=== PATIENT | female | born 1985 | race Caucasian/White ===

== ENCOUNTER 2018-04-01 18:03 | Observation (INO) | payer MEDICAID ==
[2018-04-01] MEDS ORDERED: GLUCOSE GEL 15 GRAM TUBE PO ×2 (19:00)
[2018-04-01] MEDS ORDERED: GLUCOSE GEL 15 GRAM TUBE BUCCAL (19:00)
[2018-04-01] MEDS ORDERED: GLUCAGON 1 MG INJ IM (19:00)
[2018-04-01] MEDS ORDERED: DEXTROSE 50% 50 ML SYRINGE IV ×2 (19:00)
[2018-04-01] MEDS ORDERED: INSULIN ASPART [NOVOLOG] 3 ML PEN SC ×2 (19:35)
[2018-04-01] MEDS ORDERED: ACCU-CHEK XX (19:35)
[2018-04-01 19:36] LABS: HEMOGLOBIN A1C 5.7 % (0-5.9)
[2018-04-01] MEDS: metFORMIN (XR) 500 MG TAB PO (21:18)
[2018-04-02] MEDS: metFORMIN (XR) 500 MG TAB PO (10:18)
== END 2018-04-02 17:30 | disposition home or self-care (01) ==
LOC: L-D 18:03
PROVIDERS: Obstetrics & Gynecology
DX: O24.415 Gestational diabetes mellitus in pregnancy, controlled by oral hypoglycemic drugs (principal); Z3A.33 33 weeks gestation of pregnancy
CPT/HCPCS: 76818; 82962; 83036; 99217

== ENCOUNTER 2018-05-20 07:29 | Inpatient (IN) | payer MEDICAID ==
[2018-05-20 08:31] LABS: RUPTURE FETAL MEMBRANES POSITIVE (NEGATIVE)
[2018-05-20] MEDS: LACTATED RINGER'S 1,000 ML IV* ×3 (08:51→22:16)
[2018-05-20] MEDS ORDERED: OXYTOCIN 30 UNITS/LR 500 ML IV ×5 (09:00→19:57)
[2018-05-20] MEDS ORDERED: LIDOCAINE 1% (MPF) 30 ML INJ INJ (09:00)
[2018-05-20] MEDS ORDERED: IBUPROFEN 600 MG TAB PO (09:00)
[2018-05-20] MEDS ORDERED: ACETAMINOPHEN/CODEINE #3 TAB PO (09:00)
[2018-05-20] MEDS ORDERED: CARBOPROST 250 MCG INJ IM ×3 (09:00→19:30)
[2018-05-20] MEDS ORDERED: METHYLERGONOVINE 0.2 MG INJ IM ×2 (09:00→19:00)
[2018-05-20] MEDS ORDERED: BUTORPHANOL 2 MG INJ IV (09:00)
[2018-05-20] MEDS ORDERED: MISOPROSTOL 200 MCG TAB PR ×2 (09:00→19:00)
[2018-05-20] MEDS ORDERED: NA PHOSPHATE/BIPHOS 133 ML ENEMA PR (09:00)
[2018-05-20] MEDS: AMPICILLIN 2 GM/NS (PMX) 100 ML IV (09:10)
[2018-05-20 09:19] LABS: ADD MAN DIFF? NO
[2018-05-20 09:21] LABS: WHITE BLOOD COUNT 11.2 10^3/ul (4.8-10.8)
[2018-05-20 09:21] LABS: BASOPHILS % 0.4 % (0.0-2.0); EOSINOPHILS # 0.1 10^3/ul (0.0-0.5); EOSINOPHILS % 0.5 % (0.0-7.0); HEMATOCRIT 39.5 % (37.0-47.0); LYMPHOCYTES # 2.1 10^3/ul (0.8-2.9); LYMPHOCYTES % 18.3 % (15.0-51.0); MEAN CORPUSCULAR HEMOGLOBIN 28.3 pg (29.0-33.0); MEAN CORPUSCULAR HGB CONC 32.9 g/dl (32.0-37.0); MEAN CORPUSCULAR VOLUME 86.1 fl (82.0-101.0); MEAN PLATELET VOLUME 11.9 fl (7.4-10.4); MONOCYTE # 0.9 10^3/ul (0.3-0.9); MONOCYTES % 7.8 % (0.0-11.0); NEUTROPHILS % 71.5 % (39.0-77.0); PLATELET COUNT 204 10^3/UL (140-415); RED BLOOD COUNT 4.59 10^6/ul (4.20-5.40); RED CELL DISTRIBUTION WIDTH 13.7 % (11.5-14.5)
[2018-05-20 09:40] LABS: GLUCOSE 126 mg/dl (70-220)
[2018-05-20 09:45] LABS: PROTIME 12.2 Sec (11.9-14.9)
[2018-05-20 09:46] LABS: PARTIAL THROMBOPLASTIN TIME 26.6 Sec (25.0-35.0)
[2018-05-20] MEDS ORDERED: ONDANSETRON 4 MG INJ IV ×3 (10:00→21:00)
[2018-05-20] MEDS ORDERED: DIPHENHYDRAMINE 50 MG INJ IV ×3 (10:00→21:00)
[2018-05-20] MEDS ORDERED: NALOXONE (0.4 MG/ML) INJ IV ×2 (10:00→21:00)
[2018-05-20] MEDS ORDERED: FENTAnyl 2MCG/ML-ROPIV 0.2% 100 ML BAG EPI (10:00)
[2018-05-20 10:13] LABS: HEPATITIS B SURFACE ANTIGEN NEGATIVE (NEGATIVE)
[2018-05-20] MEDS: AMPICILLIN 1 GM/NS (PMX) 50 ML IV ×2 (12:02→15:55)
[2018-05-20 15:08] LABS: RAPID PLASMA REAGIN NONREACTIVE (NR)
[2018-05-20] MEDS: OXYTOCIN 30 UNITS/LR 500 ML IV ×3 (17:32→23:09)
[2018-05-20] MEDS: MINERAL OIL LIGHT 10 ML VIAL TOP (18:36)
[2018-05-20] MEDS ORDERED: TERBUTALINE 1 ML (18:46)
[2018-05-20] MEDS: TERBUTALINE 1 MG/ML INJ SC (18:47)
[2018-05-20] MEDS ORDERED: CEFAZOLIN 2 GM/50 ML (PMX) 50 ML IV (19:00)
[2018-05-20] MEDS ORDERED: morphine SULFATE/PF (10 MG/10 ML) INJ (19:16)
[2018-05-20] MEDS ORDERED: LIDOCAINE 1.5%/EPI MPF (SDV) 30 ML VIAL (19:20)
[2018-05-20] MEDS ORDERED: PHENYLephrine (100 MCG/ML) 10ML SYG (19:22)
[2018-05-20] MEDS ORDERED: CEFAZOLIN 1 GM INJ (19:27)
[2018-05-20] MEDS ORDERED: FAMOTIDINE 20 MG INJ (19:49)
[2018-05-20] MEDS ORDERED: METOCLOPRAMIDE 10 MG INJ (19:49)
[2018-05-20] MEDS ORDERED: EPHEDrine 25 MG/5 ML SYG (19:56)
[2018-05-20] MEDS ORDERED: PROCHLORPERAZINE 10 MG INJ IV (20:30)
[2018-05-20] MEDS ORDERED: FENTAnyl 50 MCG/ML VIAL IV ×3 (20:30→21:00)
[2018-05-20] MEDS ORDERED: MEPERIDINE 25 MG INJ IV (20:30)
[2018-05-20] MEDS ORDERED: HYDROmorphONE 1 MG/5 ML IV SYRINGE IV ×3 (20:30)
[2018-05-20] MEDS: CEFAZOLIN 2 GM/50 ML (PMX) 50 ML IV (20:55)
[2018-05-20] MEDS: KETOROLAC 30 MG INJ IV (20:58)
[2018-05-20] MEDS ORDERED: HYDROmorphONE 0.5 MG/0.5 ML SYG IV ×2 (21:00)
[2018-05-20] MEDS ORDERED: ZOLPIDEM 5 MG TAB PO (21:00)
[2018-05-20] MEDS: METHYLERGONOVINE 0.2 MG INJ IM (21:35)
[2018-05-20] MEDS: MISOPROSTOL 200 MCG TAB PR ×2 (21:48)
[2018-05-20 22:28] LABS: ADD MAN DIFF? NO
[2018-05-20 22:30] LABS: ABNORMAL IP MESSAGE 1; BASOPHILS % 0.1 % (0.0-2.0); HEMATOCRIT 29.8 % (37.0-47.0); HEMOGLOBIN 9.6 g/dl (12.0-16.0); LYMPHOCYTES # 0.9 10^3/ul (0.8-2.9); LYMPHOCYTES % 4.6 % (15.0-51.0); MEAN CORPUSCULAR HEMOGLOBIN 28.6 pg (29.0-33.0); MEAN CORPUSCULAR HGB CONC 32.2 g/dl (32.0-37.0); MEAN CORPUSCULAR VOLUME 88.7 fl (82.0-101.0); MEAN PLATELET VOLUME 12.3 fl (7.4-10.4); MONOCYTE # 1.7 10^3/ul (0.3-0.9); MONOCYTES % 8.8 % (0.0-11.0); NEUTROPHIL # 16.7 10^3/ul (1.6-7.5); NEUTROPHILS % 85.7 % (39.0-77.0); PLATELET COUNT 188 10^3/UL (140-415); RED BLOOD COUNT 3.36 10^6/ul (4.20-5.40); RED CELL DISTRIBUTION WIDTH 13.8 % (11.5-14.5)
[2018-05-20 22:30] LABS: WHITE BLOOD COUNT 19.5 10^3/ul (4.8-10.8)
[2018-05-20 22:35] LABS: POSITIVE DIFF @See below
[2018-05-21] MEDS: AMPICILLIN 1 GM/NS (PMX) 50 ML IV
[2018-05-21] MEDS: LACTATED RINGER'S 1,000 ML IV* (01:02)
[2018-05-21] MEDS: ACETAMINOPHEN 325 MG TAB PO (01:19)
[2018-05-21] MEDS ORDERED: CEFAZOLIN 1 GM/50 ML (PMX) 50 ML IVPB ×2 (01:30→03:30)
[2018-05-21 02:00] LABS: ADD UMIC YES; UR ASCORBIC ACID NEGATIVE (NEGATIVE); UR BILIRUBIN (Dip) NEGATIVE (NEGATIVE); UR BLOOD (Dip) 3+ mg/dL (NEGATIVE); UR CLARITY CLEAR (CLEAR); UR COLOR YELLOW (YELLOW); UR GLUCOSE (Dip) NEGATIVE (NEGATIVE); UR KETONES (Dip) 1+ mg/dL (NEGATIVE); UR LEUKOCYTE ESTERASE (Dip) NEGATIVE Leu/ul (NEGATIVE); UR NITRITE (Dip) NEGATIVE (NEGATIVE); UR RBC > 182 /HPF (0-5); UR SPECIFIC GRAVITY (Dip) 1.012 (1.003-1.030); UR SQUAMOUS EPITHELIAL CELL FEW /HPF (FEW); UR TOTAL PROTEIN (Dip) 1+ mg/dl (NEGATIVE); UR UROBILINOGEN (Dip) NEGATIVE (NEGATIVE); UR WBC 1 /HPF (0-5)
[2018-05-21] MEDS: LACTATED RINGER'S 1,000 ML IV ×3 (03:14→23:47)
[2018-05-21] MEDS: CEFAZOLIN 2 GM/50 ML (PMX) 50 ML IV (03:25)
[2018-05-21] MEDS ORDERED: MISOPROSTOL 200 MCG TAB PR (03:30)
[2018-05-21] MEDS ORDERED: NA PHOSPHATE/BIPHOS 133 ML ENEMA PR (03:30)
[2018-05-21] MEDS ORDERED: OXYTOCIN 30 UNITS/LR 500 ML IV (03:30)
[2018-05-21] MEDS ORDERED: HYDROCODONE/APAP (5/325) TAB PO (03:30)
[2018-05-21] MEDS ORDERED: METHYLERGONOVINE 0.2 MG INJ IM (03:30)
[2018-05-21] MEDS ORDERED: CARBOPROST 250 MCG INJ IM (03:30)
[2018-05-21 06:49] LABS: ADD MAN DIFF? NO
[2018-05-21 07:09] LABS: ABNORMAL IP MESSAGE 1; BASOPHILS % 0.1 % (0.0-2.0); HEMATOCRIT 19.1 % (37.0-47.0); LYMPHOCYTES # 1.4 10^3/ul (0.8-2.9); LYMPHOCYTES % 8.8 % (15.0-51.0); MEAN PLATELET VOLUME 12.5 fl (7.4-10.4); MONOCYTE # 1.5 10^3/ul (0.3-0.9); MONOCYTES % 9.2 % (0.0-11.0); NEUTROPHIL # 12.8 10^3/ul (1.6-7.5); NEUTROPHILS % 81.3 % (39.0-77.0); PLATELET COUNT 157 10^3/UL (140-415); RED BLOOD COUNT 2.17 10^6/ul (4.20-5.40); RED CELL DISTRIBUTION WIDTH 13.9 % (11.5-14.5)
[2018-05-21 07:09] LABS: WHITE BLOOD COUNT 15.8 10^3/ul (4.8-10.8)
[2018-05-21 07:18] LABS: HEMOGLOBIN 6.3 g/dl (12.0-16.0); PATH REVIEW? YES
[2018-05-21] MEDS ORDERED: ACETAMINOPHEN 325 MG TAB PO (08:00)
[2018-05-21] MEDS: AMPICILLIN 2 GM/NS (PMX) 100 ML IVPB ×3 (08:33→20:28)
[2018-05-21] MEDS: GENTAMICIN 80 MG/NS (PMX) 50 ML IVPB ×2 (09:29→17:34)
[2018-05-21] MEDS: CLINDAMYCIN 900 MG/D5W (PMX) 50 ML IVPB ×2 (10:01→18:31)
[2018-05-21] MEDS: BISACODYL 10 MG SUPP PR (10:30)
[2018-05-21] MEDS ORDERED: CLINDAMYCIN 300 MG CAP PO (12:00)
[2018-05-21] MEDS: LANOLIN 7 GM TUBE TOP (12:50)
[2018-05-21] MEDS: KETOROLAC 30 MG INJ IV (12:50)
[2018-05-21 13:11] LABS: IMMEDIATE SPIN CROSSMATCH 1 2
[2018-05-21] MEDS ORDERED: GLUCOSE GEL 15 GRAM TUBE PO ×2 (14:30)
[2018-05-21] MEDS ORDERED: GLUCAGON 1 MG INJ IM (14:30)
[2018-05-21] MEDS ORDERED: DEXTROSE 50% 50 ML SYRINGE IV ×2 (14:30)
[2018-05-21] MEDS ORDERED: GLUCOSE GEL 15 GRAM TUBE BUCCAL (14:30)
[2018-05-21] MEDS: metFORMIN (XR) 500 MG TAB PO ×2 (15:14→22:30)
[2018-05-21 18:20] LABS: ADD MAN DIFF? NO
[2018-05-21 18:25] LABS: BASOPHILS % 0.1 % (0.0-2.0); EOSINOPHILS % 0.2 % (0.0-7.0); HEMATOCRIT 24.4 % (37.0-47.0); HEMOGLOBIN 8.3 g/dl (12.0-16.0); LYMPHOCYTES # 2.5 10^3/ul (0.8-2.9); LYMPHOCYTES % 18.7 % (15.0-51.0); MEAN CORPUSCULAR VOLUME 88.1 fl (82.0-101.0); MEAN PLATELET VOLUME 11.7 fl (7.4-10.4); MONOCYTE # 1.4 10^3/ul (0.3-0.9); MONOCYTES % 10.2 % (0.0-11.0); NEUTROPHIL # 9.4 10^3/ul (1.6-7.5); NEUTROPHILS % 70.2 % (39.0-77.0); PLATELET COUNT 124 10^3/UL (140-415); RED BLOOD COUNT 2.77 10^6/ul (4.20-5.40); RED CELL DISTRIBUTION WIDTH 13.2 % (11.5-14.5)
[2018-05-21 18:25] LABS: WHITE BLOOD COUNT 13.4 10^3/ul (4.8-10.8)
[2018-05-21] MEDS: ACCU-CHEK XX (20:05)
[2018-05-21] MEDS: SENNA/DOCUSATE NA (8.6MG/50MG) TAB PO (21:43)
[2018-05-21] MEDS: IBUPROFEN 800 MG TAB PO (21:43)
[2018-05-21] MEDS: OXYCODONE/ACETAMINOPHEN (5/325) TAB PO (22:42)
[2018-05-22] MEDS: GENTAMICIN 80 MG/NS (PMX) 50 ML IVPB ×3 (01:11→17:17)
[2018-05-22] MEDS: AMPICILLIN 2 GM/NS (PMX) 100 ML IVPB ×4 (02:02→20:47)
[2018-05-22] MEDS: CLINDAMYCIN 900 MG/D5W (PMX) 50 ML IVPB ×3 (03:04→17:56)
[2018-05-22] MEDS: LACTATED RINGER'S 1,000 ML IV ×2 (03:14→12:49)
[2018-05-22] MEDS: IBUPROFEN 800 MG TAB PO ×3 (05:33→22:02)
[2018-05-22] MEDS: ACCU-CHEK XX ×4 (07:47→15:43)
[2018-05-22 08:22] LABS: ADD MAN DIFF? NO
[2018-05-22 08:26] LABS: WHITE BLOOD COUNT 11.8 10^3/ul (4.8-10.8)
[2018-05-22 08:26] LABS: BASOPHILS % 0.1 % (0.0-2.0); EOSINOPHILS # 0.1 10^3/ul (0.0-0.5); EOSINOPHILS % 0.5 % (0.0-7.0); HEMOGLOBIN 7.7 g/dl (12.0-16.0); LYMPHOCYTES # 2.1 10^3/ul (0.8-2.9); LYMPHOCYTES % 17.8 % (15.0-51.0); MEAN CORPUSCULAR HEMOGLOBIN 29.3 pg (29.0-33.0); MEAN CORPUSCULAR HGB CONC 33.5 g/dl (32.0-37.0); MEAN CORPUSCULAR VOLUME 87.5 fl (82.0-101.0); MEAN PLATELET VOLUME 11.9 fl (7.4-10.4); MONOCYTE # 1.1 10^3/ul (0.3-0.9); NEUTROPHIL # 8.4 10^3/ul (1.6-7.5); NEUTROPHILS % 71.8 % (39.0-77.0); PLATELET COUNT 135 10^3/UL (140-415); RED BLOOD COUNT 2.63 10^6/ul (4.20-5.40); RED CELL DISTRIBUTION WIDTH 13.6 % (11.5-14.5)
[2018-05-22] MEDS: metFORMIN (XR) 500 MG TAB PO ×2 (08:45→20:48)
[2018-05-22] MEDS: SENNA/DOCUSATE NA (8.6MG/50MG) TAB PO ×2 (08:45→21:00)
[2018-05-22] MEDS: OXYCODONE/ACETAMINOPHEN (5/325) TAB PO ×2 (10:41→20:48)
[2018-05-23] MEDS: GENTAMICIN 80 MG/NS (PMX) 50 ML IVPB ×2 (01:37→09:13)
[2018-05-23] MEDS: CLINDAMYCIN 900 MG/D5W (PMX) 50 ML IVPB ×2 (02:22→10:01)
[2018-05-23] MEDS: LACTATED RINGER'S 1,000 ML IV ×2 (02:22→11:14)
[2018-05-23] MEDS: AMPICILLIN 2 GM/NS (PMX) 100 ML IVPB ×3 (03:03→14:00)
[2018-05-23] MEDS: IBUPROFEN 800 MG TAB PO ×2 (05:59→14:00)
[2018-05-23] MEDS: ACCU-CHEK XX ×3 (07:47→13:50)
[2018-05-23] MEDS: MEASLES,MUMPS,RUBELLA VACCINE INJ SC* (09:00)
[2018-05-23] MEDS: SENNA/DOCUSATE NA (8.6MG/50MG) TAB PO (09:12)
[2018-05-23] MEDS: metFORMIN (XR) 500 MG TAB PO (09:12)
[2018-05-23] MEDS: DIPHTH/TET/ACEL PERTUSS (ADULT) 0.5 ML VIAL IM* (12:15)
[2018-05-23] MEDS: OXYCODONE/ACETAMINOPHEN (5/325) TAB PO (12:23)
== END 2018-05-23 14:20 | disposition home or self-care (01) | DRG 766 ==
LOC: OBT 07:29 → L-D 05-21 00:33 → OBT 08:03 → PP1 05-21 12:45 → L-D 08:07
PROVIDERS: Obstetrics & Gynecology
PROC: 10D00Z1 Extraction of Products of Conception, Low, Open Approach (ICD-10-PCS; principal; 2018-05-20 18:00)
DX: O62.1 Secondary uterine inertia (principal); O36.63X0 Maternal care for excessive fetal growth, third trimester, not applicable or unspecified; O24.425 Gestational diabetes mellitus in childbirth, controlled by oral hypoglycemic drugs; O99.824 Streptococcus B carrier state complicating childbirth; Z3A.39 39 weeks gestation of pregnancy; Z37.0 Single live birth; Z23 Encounter for immunization
CPT/HCPCS: 36430; 62319; 81001; 82947; 82962; 84112; 85025; 85610; 85730; 86592; 86850; 86900; 86901; 86920; 87040; 87086; 87340; 90715; 99464